=== PATIENT | female | born 1955 | race Caucasian/White ===

== ENCOUNTER → 2020-04-14 | Outpatient (CLI) | payer OTHER, MEDICARE ==
[~2020-04-14] MED LIST: ASPIR 8181 MG PO; CEFDINIR300 MG PO; CENTRUM SILVER1 EAC4 PO; CITRACAL + BON1 EACH PO; FIBER THERAPY0.52 GM PO; FISH OIL 1,001000 M2 PO; PAXIL10 MG; PIOGLITAZONE15 MG
[2020-04-14 09:17] LABS: CREATININE 0.8 mg/dL (0.6-1.0)
== END | disposition home or self-care (01) ==
LOC: MRI 08:37
PROVIDERS: ATTEND Family Medicine
DX: M25.512 Pain in left shoulder (principal); M67.814 Other specified disorders of tendon, left shoulder; S43.432A Superior glenoid labrum lesion of left shoulder, initial encounter; Z79.82 Long term (current) use of aspirin; Z79.899 Other long term (current) drug therapy; Z98.890 Other specified postprocedural states; X58.XXXA Exposure to other specified factors, initial encounter; Y93.89 Activity, other specified; Y92.89 Other specified places as the place of occurrence of the external cause; Y99.8 Other external cause status

== ENCOUNTER → 2020-09-28 | Outpatient (CLI) | payer OTHER | LOC: CAT 09:11 | PROVIDERS: ATTEND Family Medicine | DX: Z13.6 Encounter for screening for cardiovascular disorders (principal); E78.00 Pure hypercholesterolemia, unspecified; I25.10 Atherosclerotic heart disease of native coronary artery without angina pectoris ==